=== PATIENT | female | born 1970 | race Caucasian/White ===

== ENCOUNTER 2019-11-30 13:25 | Emergency (ER) | payer OTHER ==
[~2019-11-30] VITALS: Ht 149.9 cm; Wt 38.1 kg
[2019-11-30 13:59] LABS: ABSOLUTE BASOPHILS 0.1 thou/uL (0.0-0.2); ABSOLUTE EOSINOPHILS 0.1 thou/uL (0.0-0.7); ABSOLUTE LYMPHOCYTES 2.2 thou/uL (0.8-5.3); ABSOLUTE MONOCYTES 0.6 thou/uL (0.0-1.2); ABSOLUTE NEUTROPHILS 5.6 thou/uL (1.6-8.1); BASOPHILS 0.9 %; EOSINOPHILS 1.4 %; HEMATOCRIT 32.8 % (37.0-47.0); HEMOGLOBIN 10.9 gm/dL (12.0-15.0); LYMPHOCYTES 25.6 %; MCH 27.6 pg (26.0-34.0); MCHC 33.3 g/dL (28.0-37.0); MCV 82.8 fL (80.0-100.0); MONOCYTES 6.5 %; MPV 8.2 fl. (7.2-11.1); NUCLEATED RBCS 0 /100WBC; PLATELET COUNT* 231 thou/uL (150-400); POLYS 65.6 %; RBC 3.95 mil/uL (4.20-5.00); RDW-CV 19.5 % (10.5-14.5); WBC 8.5 thou/uL (4.0-11.0)
[2019-11-30 14:09] LABS: CALCIUM 8.3 mg/dL (8.5-10.1); POTASSIUM 3.4 mmol/L (3.5-5.1)
[2019-11-30 14:14] LABS: ALBUMIN 3.8 g/dL (3.4-5.0); TOTAL BILIRUBIN 0.6 mg/dL (<0.1-1.0)
[2019-11-30 15:57] VITALS: BP 119/78
--- NOTE | 2019-12-01 15:34 | EKG ---
[place] [address] ELECTROCARDIOGRAM REPORT Name: JESUS BAL Room: [facility]#: [id number] Admission: 11/30/19 Attend Phys: Discharge: 11/30/19 Date of : 72 Date of Service: 11/30/19 1337 Report #: [id number] THIS REPORT FOR: //name// [facility] ED Test Date: 2019-11-30 Test Time: 13:37:04 Pat Name: JESUS BAL Department: Room: Gender: Process Engineering Intern: [place] : 1970 Requested By: Soila Escobedo Order Number: [id number] MD: Giuseppe Carias Measurements Intervals [place] Rate: 86 P: 72 ME: 137 QRS: 77 QRSD: 92 T: 47 QT: 375 QTc: 449 Interpretive Statements Sinus rhythm Borderline T abnormalities, anterior leads No previous ECG available for comparison Electronically Signed On 12-01-2019 15:32:33 CDT by Giuseppe Carias [email or web address] <ELECTRONICALLY SIGNED> By: Nidia Carias MD, [facility] 12/01/19 1532 1337 1337 Nidia Carias MD, [facility] /EPI
== END 2019-11-30 16:00 | disposition home or self-care (01) ==
LOC: M.ERS 13:25
PROVIDERS: Physician Assistant
DX: M25.512 Pain in left shoulder (principal); R07.89 Other chest pain; R20.0 Anesthesia of skin; F17.210 Nicotine dependence, cigarettes, uncomplicated

== ENCOUNTER 2021-01-13 09:23 | Emergency (ER) | payer OTHER ==
[~2021-01-13] VITALS: Ht 149.9 cm; Wt 38.6 kg
[2021-01-13 09:51] VITALS: BP 145/88
--- NOTE | 2021-01-13 16:08 | EKG ---
[place] [address] ELECTROCARDIOGRAM REPORT Name: JESUS BAL Room: [facility]#: [id number] Admission: 01/13/21 Attend Phys: Discharge: 01/13/21 Date of : 72 Date of Service: 01/13/21 0940 Report #: [id number] THIS REPORT FOR: //name// [facility] ED Test Date: 2021-01-13 Test Time: 09:40:42 Pat Name: JESUS BAL Department: Room: Gender: Getter Filler: : 1970 Requested By: Vladislav Mercedes Order Number: [id number] MD: Corby Correa Measurements Intervals [place] Rate: 62 P: 80 CA: 158 QRS: 77 QRSD: 88 T: 55 QT: 408 QTc: 415 Interpretive Statements Sinus rhythm Compared to ECG 11/30/2019 13:37:04 T-wave abnormality no longer present Electronically Signed On 01-13-2021 16:08:26 CDT by Corby Correa [email or web address] <ELECTRONICALLY SIGNED> By: Corby Correa MD, [facility] 01/13/21 1608 0940 0940 Corby Correa MD, [facility] /EPI
== END 2021-01-13 09:51 | disposition home or self-care (01) ==
LOC: M.ERS 09:23
DX: R20.2 Paresthesia of skin (principal)